=== PATIENT | male | born 1970 | race Caucasian/White ===

== ENCOUNTER 2021-05-08 08:29 | Day surgery (SDC) | payer BC ==
[2021-05-03 11:29] VITALS: BMI 29.9
[2021-05-08 08:54] VITALS: TEMP 98.1
[2021-05-08] MEDS ORDERED: PROPOFOL 20 ML ONE (09:38)
[2021-05-08] MEDS ORDERED: LIDOCAINE HCL/PF 2% SDV 5ML VIAL ONE (09:38)
[2021-05-08 11:16] VITALS: BP 105/77; PULSE 88
== END 2021-05-08 11:15 | disposition home or self-care (01) ==
LOC: FASU-ENDO 08:29
PROVIDERS: ATTEND Internal Medicine Gastroenterology
PROC: 0DJD8ZZ Inspection of Lower Intestinal Tract, Via Natural or Artificial Opening Endoscopic (ICD-10-PCS; principal; 2021-05-08 09:45)
DX: Z12.11 Encounter for screening for malignant neoplasm of colon (principal)